=== PATIENT | male | born 1985 | race Caucasian/White ===

== ENCOUNTER → 2025-01-07 07:35 | Outpatient (CLI) | payer OTHER, SELFPAY ==
[2025-01-07 08:06] LABS: Hemoglobin 15.3 g/dL (13.5-17.5); Mean Corpuscular HGB Conc 34.7 % (30-36); Mean Corpuscular Hemoglobin 31.7 PG (26-34); Mean Corpuscular Volume 91.6 fL (80-100); Platelet Count 232 X10^3/uL (150-400); Red Blood Cell Count 4.81 X10^6/uL (4.5-5.9); Red Cell Distribution Width 13.6 % (11.6-14.8); White Blood Cell Count 6.4 X10^3/uL (4.5-11.0)
[2025-01-07 08:24] LABS: Hemoglobin A1C% w Est Avg Glu 5.2 % (4.0-6.0)
[2025-01-07 08:34] LABS: Alanine Aminotransferase 36 IU/L (<50); Albumin 4.7 g/dL (3.5-5.0); Albumin Globulin Ratio 1.7 (1.0-2.8); Alkaline Phosphatase 74 U/L (38-126); Aspartate Aminotransferase 32 IU/L (17-59); BUN Creatinine Ratio 16.7 (6-22); Bilirubin Total 0.7 mg/dL (0.2-1.3); Blood Urea Nitrogen 16 mg/dL (9-20); Calcium 9.7 mg/dL (8.4-10.2); Carbon Dioxide 25 mmol/L (22-32); Chloride 102 mmol/L (98-107); Cholesterol 198 mg/dL (140-199); Estimated Glomerular Filt Rate > 60 mL/min (>60); Globulin 2.8 g/dL (1.7-4.1); Glucose 102 mg/dL (70-99); HDL Cholesterol 47 mg/dL (40-60); HEMOLYSIS < 15 (0-50); LDL Cholesterol Calculated 125 mg/dL (<100); Potassium 4.7 mmol/L (3.4-5.1); Sodium 136 mmol/L (137-145); Total Protein 7.5 g/dL (6.3-8.2); Triglycerides 132 mg/dL (35-150); Uric Acid 8.7 mg/dL (3.5-8.5)
[2025-01-07 15:14] LABS: HIV 1 & 2 Ab/Ag 4th Gen Combo NEGATIVE (NEGATIVE); Hep C Virus Ab w/Reflex Quant NEGATIVE s/c (NEGATIVE)
== END ==
LOC: LAB 07:37
PROVIDERS: Family Provider Family Medicine; PCP Family Medicine; Referring Provider Family Medicine; Visit Provider Family Medicine
DX: Z11.4 Encounter for screening for human immunodeficiency virus [HIV] (principal); Z11.59 Encounter for screening for other viral diseases; I10 Essential (primary) hypertension; E66.813 Obesity, class 3
CPT/HCPCS: 36415; 80053; 80061; 83036; 84550; 85027; 86803; 87389

== ENCOUNTER 2025-01-07 12:53 | Outpatient (RCR) | payer OTHER, SELFPAY ==
--- NOTE | 2025-01-07 15:41 | OT.OPPOC ---
Physical, Occupational & Speech Therapy At [facility] [id number] 1985 Visit Care Team Role Provider Type Manolo Hartman MD Attending Provider Physician Family Provider Primary Care Provider Referring Provider Address: [facility] [place], [address] Occupational Therapy Plan of Care OT Outpatient Adult Evaluation Start: 01/07/25 13:47 Freq: Status: Active Protocol: Document 01/07/25 13:48 (Rec: 01/07/25 14:14 [id number]) General Information - Adult Visit Information Visit Number 1 of 10 Plan of Care Dates 01/07/25-03/18/25 Insurance no pre-auth;no copay;$250 deductible/0 met/$250 Information remaining;max 90 PT/OT/ST Session Time Visit Start Date 01/07/25 Visit Start Time 13:00 Visit Stop Time 13:40 Setting Treatment Setting Outpatient Care Visit Type Note Type Initial Evaluation Referral Referring Physician Dr Manolo Hartman Reason for Referral bilateral carpal tunnel Identification Identification Yes Confirmed Identification EMR Confirmed By Previous Therapy Previous Therapy/ Yes Therapies History of Therapy Pt reports onset of symptoms originally in [facility] [place] ~2 years ago, he did go to an OT and was provided a L wrist cock up splint but states he does not know if he still has it or not Social Information Social History I have a 6mon old and the numbness and tingling are just getting worse and now just holding his premie bottle will make my hand go numb or tingle Patient Questionnaires Quick Dash- Upper Extremity Quick Dash UE Score 45.5 Quick Dash UE 40 to 59% Impaired (Score 40-59) Impairment Quick Dash- Work and Sports Modules Quick Dash W&S Score W: 25, S: 37.5 Quick Dash Work and 20 to 39% Impaired (Score 20-39) Sport Impairment Goals Objective Measurements Objective Tinels Test: R (+), L (-) Measurements Phalen's: R (+), L (+) Reverse Phalen's: R (+), L (-) Carpal Compression: R (+), L (-) Outboard Motorboat Operator: R (51/56/54) Avg 53.6#, L (43/50/52) Avg 48.3# Lateral pinch: R 34, L 35 Tripod pinch: R 19, L 22 Treatment Treatment Pt provided education on splint recommendations and wear, introduced tendon FLOSS sequence as HEP with good return demo though very limited by symptoms and pt was further educated on modifying and progressing sequence per limitations of symptoms. Pt verbalized understanding Short Term Goals Short Term Goals 1. Pt will be independent verbalizing/demonstrating HEP and splint wear within 4 weeks 2. Patient will be able to complete their work, leisure and self care tasks with reduced pain and improved efficiency as evidenced by quickDASH score of 30 or less within 6 weeks Group Home Goals Rn Visiting Goals 1. Patient will report symptom free performance of urban and regional planner and pinch activities within 10 weeks for increased independence and performance with functional tasks like carrying objects. 2. Patient will be able to perform bilateral tasks like opening jars or carrying grocery bags with reduced difficulty (e.g., scoring 3 or lower on the [place] Carpal Tunnel Questionnaire Functional Status Scale - CTQ-FSS) within 10 weeks, indicating improved overall hand function. Assessment/Plan Assessment Patient Response Good Rehabilitation Good Potential Impairments ADLs,Flexibility,Functional Activities,Pain,Weakness, Identified Range of Motion,Recreational Activities,Meaningful Activities,Work Capacity Treatment Assessment 39 year old RHD male referred to occupational therapy by Dr. Manolo Hartman for bilateral carpal tunnel syndrome . Pt states he has had similar presentation of symptoms (numbess and tingling with use of hand/wrist) approximately 2 years ago in his [place] and was splinted during therapy at that time, however, shortly after he sustained a fall and resultant humeral fracture of the same arm and the subsequent rest and care of the fracture gradually resolved carpal tunnel symptoms. However, the pt is now presenting with similar symptoms of RUE citing a job change and new born baby (6mo) as well as enjoying golf creating frequent overuse of his hand and wrist and numbness and tingling have progressed. Pt currently presenting with symptoms consistent with bilateral carpal tunnel syndrome (R>L) and will require skilled OT to provide education on splint wear and maintenance as well as HEP and modalities to reduce and manage nerve symptoms for increased independence and efficacy of ADL/IADL performance deficits. Continue with POC Home Exercise Median Nerve Glides Program Reviewed with Goals,Progress Being Made,Home Exercise Program Patient Patient Good Understanding Plan Length of treatment 10 (weeks) Plan of Care Start 01/07/25 Date Plan of Care End 03/18/25 Date Treatment Frequency Once a Week Treatment Duration 45 Minutes Therapeutic Contents Active Range of Motion,Client Education,Functional Activities,Home Exercise Program,Manual Therapy, Education,Orthosis,Self-Care,Stretching/Flexibility Activities,Therapeutic Activities,Therapeutic Exercises ,Modalities Modalities As Needed Types of Modalities Contrast Bath,Cyrotherapy,Ice Massage,Other Additional Types of MHP, Paraffin Modalities Patient Instruction Home Exercise Program,Plan of Care,Questions/Concerns Patient Continue with Current Program Recommendations Electronically Signed by: Tara Lawson OT 01/07/25 [id number] If you are in agreement with this Plan of Care, please return a signed and dated copy. I have reviewed this Plan of Care and certify that the skilled therapy services above are required to meet the patient?s needs. Physician Signature Date Printed Name and Credentials Clinical Instructor Signature Printed Name and Credentials
--- NOTE | 2025-01-26 10:39 | OT.OP.DC ---
Visit Care Team Role Provider Type Manolo Hartman MD Attending Provider Physician Family Provider Primary Care Provider Referring Provider Address: [facility] [place], [address] Email: [email or web address] Outpatient Discharge Summary OT Outpatient Adult Evaluation Only Start: 01/07/25 13:47 Freq: Status: Active Protocol: Document 01/07/25 13:48 (Rec: 01/07/25 14:14 [id number]) General Information - Adult Visit Information Visit Number 1 of 10 Plan of Care Dates 01/07/25-03/18/25 Insurance no pre-auth;no copay;$250 deductible/0 met/$250 Information remaining;max 90 PT/OT/ST Session Time Visit Start Date 01/07/25 Visit Start Time 13:00 Visit Stop Time 13:40 Setting Treatment Setting Outpatient Care Visit Type Note Type Initial Evaluation Referral Referring Physician Dr Manolo Hartman Reason for Referral bilateral carpal tunnel Identification Identification Yes Confirmed Identification EMR Confirmed By Previous Therapy Previous Therapy/ Yes Therapies History of Therapy Pt [place] of [place] [facility] [place], he did go to an OT and was provided a L wrist cock up splint but states he does not know if he still has it or not Social Information Social History I have a 6mon old and the numbness and tingling are just getting worse and now just holding his premie bottle will make my hand go numb or tingle Patient Questionnaires Quick Dash- Upper Extremity Quick Dash UE Score 45.5 Quick Dash UE 40 to 59% Impaired (Score 40-59) Impairment Quick Dash- Work and Sports Modules Quick Dash W&S Score W: 25, S: 37.5 Quick Dash Work and 20 to 39% Impaired (Score 20-39) Sport Impairment Goals Objective Measurements Objective Tinels Test: R (+), L (-) Measurements Phalen's: R (+), L (+) Reverse Phalen's: R (+), L (-) Carpal Compression: R (+), L (-) Floorman: R (51/56/54) Avg 53.6#, L (43/50/52) Avg 48.3# Lateral pinch: R 34, L 35 Tripod pinch: R 19, L 22 Treatment Treatment Pt provided education on splint recommendations and wear, introduced tendon FLOSS sequence as HEP with good return demo though very limited by symptoms and pt was further educated on modifying and progressing sequence per limitations of symptoms. Pt verbalized understanding Short Term Goals Short Term Goals 1. Pt will be independent verbalizing/demonstrating HEP and splint wear within 4 weeks 2. Patient will be able to complete their work, leisure and self care tasks with reduced pain and improved efficiency as evidenced by quickDASH score of 30 or less within 6 weeks Cardroom Plastic Card Grader Goals Cardroom Plastic Card Grader Goals 1. Patient will report symptom free performance of overseamer and pinch activities within 10 weeks for increased independence and performance with functional tasks like carrying objects. 2. Patient will be able to perform bilateral tasks like opening jars or carrying grocery bags with reduced difficulty (e.g., scoring 3 or lower on the [place] Carpal Tunnel Questionnaire Functional Status Scale - CTQ-FSS) within 10 weeks, indicating improved overall hand function. Assessment/Plan Assessment Patient Response Good Rehabilitation Good Potential Impairments ADLs,Flexibility,Functional Activities,Pain,Weakness, Identified Range of Motion,Recreational Activities,Meaningful Activities,Work Capacity Treatment Assessment 39 year old RHD male referred to occupational therapy by Dr. Manolo Hartman for bilateral carpal tunnel syndrome . Pt states he has had similar presentation of symptoms (numbess and tingling with use of hand/wrist) approximately 2 years ago in his [place] and was splinted during therapy at that time, however, shortly after he sustained a fall and resultant humeral fracture of the same arm and the subsequent rest and care of the fracture gradually resolved carpal tunnel symptoms. However, the pt is now presenting with similar symptoms of RUE citing a job change and new born baby (6mo) as well as enjoying golf creating frequent overuse of his hand and wrist and numbness and tingling have progressed. Pt currently presenting with symptoms consistent with bilateral carpal tunnel syndrome (R>L) and will require skilled OT to provide education on splint wear and maintenance as well as HEP and modalities to reduce and manage nerve symptoms for increased independence and efficacy of ADL/IADL performance deficits. Continue with POC Home Exercise Median Nerve Glides Program Reviewed with Goals,Progress Being Made,Home Exercise Program Patient Patient Good Understanding Plan Length of treatment 10 (weeks) Plan of Care Start 01/07/25 Date Plan of Care End 03/18/25 Date Treatment Frequency Once a Week Treatment Duration 45 Minutes Therapeutic Contents Active Range of Motion,Client Education,Functional Activities,Home Exercise Program,Manual Therapy, Education,Orthosis,Self-Care,Stretching/Flexibility Activities,Therapeutic Activities,Therapeutic Exercises ,Modalities Modalities As Needed Types of Modalities Contrast Bath,Cyrotherapy,Ice Massage,Other Additional Types of MHP, Paraffin Modalities Patient Instruction Home Exercise Program,Plan of Care,Questions/Concerns Patient Continue with Current Program Recommendations Functional Wrist/Hand Scan Hand Side Sensory Assessment Sensory Profile2 OT Outpatient Treatment Note - Adult Start: 01/07/25 13:47 Freq: Status: Active Protocol: Document 01/26/25 10:25 (Rec: 01/26/25 10:37 [id number]) OT Outpatient Adult Treatment Note Session Time Visit Start Date 01/26/25 Visit Information Plan of Care Dates 01/07/25-03/18/25 Setting Treatment Setting Outpatient Care Visit Type Note Type Discharge Summary General Information General Information Pt seen for initial eval only at which time he was introduced to HEP recommendations and splint wear recommendations to minimize symptoms and increase function. Pt declined to schedule further treatment sessions and has not been seen since eval. No further measurements, assessment or treatments after eval and pt seeking discharge from current services. This not will serve as discharge summary at pt request to defer services. Note will serve as discharge summary - Subjective Observations Pt declining to schedule treatment/follow ups - - - - Plan Therapy Discharge to Home Exercise Program,Discharge from Recommendations Occupational Therapy Additional Therapy Provided education and nerve glides at eval with at Recommendations home recs Amount of Therapy No Further Therapy Recommended Frequency of No Further Therapy Treatment Suggested Referrals Physical Therapy Other Referrals recommend PT if symptoms persist
== END 2025-02-01 08:52 | disposition home or self-care (01) ==
LOC: OT 12:53
PROVIDERS: Family Provider Family Medicine; PCP Family Medicine; Referring Provider Family Medicine; Visit Provider Family Medicine
DX: G56.03 Carpal tunnel syndrome, bilateral upper limbs (principal)
CPT/HCPCS: 97110; 97165